=== PATIENT | female | born 1970 | race American Indian/Alaskan Native ===

== ENCOUNTER 2017-08-12 07:30 | Outpatient (CLI) | payer OTHER ==
--- NOTE | 2017-08-12 11:26 | Magnetic Resonance Report ---
MRI of the left knee. History: Left patellar pain. Procedure: Axial gradient echo T2-weighted images, coronal T1-weighted and proton-density images with fat saturation, sagittal T1 and T2-weighted images with fat saturation were used. Findings: The medial and lateral menisci appear normal. The collateral ligaments are normal. The anterior and posterior cruciate ligaments appear normal. The patellar cartilage appears normal in thickness. There is a very small joint effusion. In the distal femur at the diaphyseal metaphyseal junction, there is a slightly lobulated intramedullary mass which measures 1.6 x 1.4 cm. The margins are sharply defined. There is mixed signal on all sequences with evidence of an internal matrix. There is no cortical interruption or extraosseous soft tissue mass. Impression: 1. The intramedullary lesion in the distal femur has benign MR features. Differential considerations include enchondroma, fibrous dysplasia, brown tumor, and numerous additional benign lesions. A metastatic process is very unlikely. Correlation with plain radiographs may be useful. 2. Tiny joint effusion.
--- NOTE | 2017-08-13 10:22 | Magnetic Resonance Report ---
MRI RIGHT KNEE WITHOUT CONTRAST: 08/12/17 07:41:00 CLINICAL: Right knee pain. Chondromalacia right patella. TECHNIQUE: Sagittal proton density, sagittal T2 fat sat, coronal T1, coronal and axial proton density fat sat and sagittal gradient T2*sequences on a 1.5 Leticia magnet. FINDINGS: The patella is intact with normal cartilage, tendon and retinaculum. Physiologic fluid in the joint spaces and no joint effusion. The menisci are intact. The cruciate ligaments and collateral ligaments are intact. Normal marrow signal with no bone contusion or fracture. IMPRESSION: Normal study.
== END 2017-08-12 07:31 | disposition home or self-care (01) ==
LOC: MRI 07:30
DX: M85.08 Fibrous dysplasia (monostotic), other site (principal); M25.462 Effusion, left knee
CPT/HCPCS: 73721

== ENCOUNTER 2018-01-07 06:44 | Emergency (ER) | payer OTHER ==
[2018-01-07] MEDS ORDERED: FLEXERIL PO ONE (09:00)
[2018-01-07] MEDS ORDERED: TORADOL IM ONE (09:00)
--- NOTE | 2018-01-07 09:05 | Emergency Department Report ---
ED Upper Extremity Inj HPI - General Chief Complaint: Shoulder Injury Stated Complaint: RIGHT SHOULDER PAIN Time Seen by Provider: 01/07/18 08:39 Source: patient Mode of arrival: Ambulatory Limitations: No Limitations - History of Present Illness Initial Comments: This is a 47-year-old female nontoxic, well nourished in appearance, no acute signs of distress presents to the ED with c/o of right shoulder pain 2 days. Patient stated that she woke up 2 days ago with this pain but denies any trauma. Patient stated that she has normal range of motion but does have pain. Patient denies any joint redness, joint swelling, fever, chills, nausea, vomiting, headache, stiff neck, chest pain or shortness of breath. Patient denies any allergies or significant past medical history. MD Complaint: Injury to:: right, shoulder -: days(s) (2) Other Extremity Injury: Shoulder: Right Other Injuries: none Place: home Severity scale (0 -10): 8 Improves With: immobilization Worsens With: movement of extremity Associated Symptoms: denies: weakness, numbness, neck pain, suspects foreign body, nausea/vomiting, heard/felt popping sensat - Related Data Previous Rx's Medication Instructions Recorded Last Taken Type Cyclobenzaprine [Flexeril] 10 mg PO BID PRN #10 tablet 01/07/18 Unknown Rx Ibuprofen [Motrin] 600 mg PO Q8H PRN #30 tablet 01/07/18 Unknown Rx Allergies Allergy/AdvReac Type Severity Reaction Status Date / Time No Known Allergies Allergy Verified 01/07/18 07:15 ED Review of Systems ROS: Stated complaint: RIGHT SHOULDER PAIN Other details as noted in HPI Constitutional: denies: chills, fever Eyes: denies: eye pain, eye discharge, vision change ENT: denies: ear pain, throat pain Respiratory: denies: cough, shortness of breath, wheezing Cardiovascular: denies: chest pain, palpitations Endocrine: no symptoms reported Gastrointestinal: denies: abdominal pain, nausea, diarrhea Genitourinary: denies: urgency, dysuria, discharge Musculoskeletal: arthralgia. denies: back pain, joint swelling Skin: denies: rash, lesions Neurological: denies: headache, weakness, paresthesias Psychiatric: denies: anxiety, depression Hematological/Lymphatic: denies: easy bleeding, easy bruising ED Past Medical Hx - Past Medical History Hx Arthritis: Yes - Surgical History Hx Cholecystectomy: Yes Additional Surgical History: C/S, tubal ligation - Social History Smoking Status: Current Every Day Smoker Substance Use Type: Alcohol - Medications Home Medications: Home Medications Medication Instructions Recorded Confirmed Last Taken Type Cyclobenzaprine [Flexeril] 10 mg PO BID PRN #10 tablet 01/07/18 Unknown Rx Ibuprofen [Motrin] 600 mg PO Q8H PRN #30 tablet 01/07/18 Unknown Rx ED Physical Exam - General Limitations: No Limitations General appearance: alert, in no apparent distress - Head Head exam: Present: atraumatic, normocephalic - Eye Eye exam: Present: normal appearance - ENT ENT exam: Present: normal exam, mucous membranes moist - Neck Neck exam: Present: normal inspection, full ROM. Absent: tenderness, meningismus - Respiratory Respiratory exam: Present: normal lung sounds bilaterally. Absent: respiratory distress, wheezes, rales, rhonchi, stridor - Cardiovascular Cardiovascular Exam: Present: regular rate, normal rhythm, normal heart sounds. Absent: bradycardia, tachycardia, irregular rhythm, systolic murmur, diastolic murmur, rubs, gallop - GI/Abdominal GI/Abdominal exam: Present: soft, normal bowel sounds - Extremities Exam Extremities exam: Present: normal inspection, full ROM, tenderness, normal capillary refill. Absent: joint swelling - Expanded Upper Extremity Exam Right General: Present: normal inspection Shoulder Exam: Present: normal inspection, tenderness (deltoid region). Absent : full ROM, swelling, abrasion, laceration, ecchymosis, deformity, crepidus, dislocation, erythema, tenderness over AC joint Upper Arm exam: Present: normal inspection, full ROM. Absent: tenderness, swelling, abrasion, laceration, ecchymosis, deformity, crepidus, dislocation, erythema Elbow exam: Present: normal inspection, full ROM. Absent: tenderness, swelling , abrasion, laceration, ecchymosis, deformity, crepidus, dislocation, erythema, effusion, pain w/ pronation/supination Forearm Wrist exam: Present: normal inspection, full ROM Hand Wrist exam: Present: normal inspection, full ROM Neuro motor exam: Present: wrist extension intact, thumb opposition intact, thumb IP flexion intact, thumb adduction intact, fingers 2-5 abduction intact Neurosensory exam: Present: 2-point discrimination, radial nerve intact, ulnar nerve intact, median nerve intact Vascular: Present: vascular compromise, normal capillary refill, radial pulse, brachial pulse, ulnar pulse - Back Exam Back exam: Present: normal inspection, full ROM - Neurological Exam Neurological exam: Present: alert, oriented X3, normal gait - Psychiatric Psychiatric exam: Present: normal affect, normal mood - Skin Skin exam: Present: warm, dry, intact, normal color. Absent: rash ED Course Vital Signs 01/07/18 07:15 Temperature 99 F Pulse Rate 80 Respiratory 16 Rate Blood Pressure 130/98 O2 Sat by Pulse 99 Oximetry - Reevaluation(s) Reevaluation #1: 01/07/18 09:03 Patient is speaking in full sentences with no signs of distress noted. ED Medical Decision Making - Medical Decision Making This is a 47-year-old female that presents with right shoulder strain. Patient is stable and was examined by me. X-ray has been obtained and dictated by the radiologist. Patient is notified of the x-ray report with no rashes noted by the patient. Patient did receive Toradol and Flexeril in the ED which patient stated that that his symptoms are improving and subsided. Patient was instructed not to operate any machinery after discharge due to drowsiness of Flexeril which She stated that she will have somebody drive her home after discharge. Patient received a shoulder immobilizer. There is no joint swelling or redness. Slight decreased ROM due to pain. Patient was referred to Follow-up with a orthopedic doctor in 3-5 days or if symptoms worsen and continue return to emergency room as soon as possible. At time of discharge, the patient does not seem toxic or ill in appearance. No acute signs of distress noted. Patient agrees to discharge treatment plan of care. No further questions noted by the patient. Critical care attestation.: If time is entered above; I have spent that time in minutes in the direct care of this critically ill patient, excluding procedure time. ED Disposition Clinical Impression: Right shoulder strain Qualifiers: Encounter type: initial encounter Qualified Code(s): S46.911A - Strain of unspecified muscle, fascia and tendon at shoulder and upper arm level, right arm , initial encounter Disposition: - TO HOME OR SELFCARE Is pt being admited?: No Does the pt Need Aspirin: No Condition: Stable Instructions: Rotator Cuff Injury (ED), Muscle Spasm (ED), Cyclobenzaprine (By mouth), Ibuprofen (By mouth) Additional Instructions: Follow-up with a primary care doctor in 3-5 days or if symptoms worsen and continue return to emergency room as soon as possible. Take ibuprofen and Flexeril as prescribed. Do not operate heavy machinery while taking Flexeril due to sedation Prescriptions: Cyclobenzaprine [Flexeril] 10 mg PO BID PRN #10 tablet PRN Reason: Muscle Spasm Ibuprofen [Motrin] 600 mg PO Q8H PRN #30 tablet PRN Reason: Pain Referrals: JEROMY PELAYO MD [Primary Care Provider] - 3-5 Days PRIMARY CARE, [Referring] - 3-5 Days [facility] [Outside] - 3-5 Days Forms: Work/School Release Form(ED)
--- NOTE | 2018-01-07 10:10 | XRay Report ---
RIGHT SHOULDER, 3 VIEWS: HISTORY: right shoulder pain. Normal bone mineralization. No acute osseous injury or joint pathology is detected. The soft tissues are unremarkable. IMPRESSION: Right shoulder within normal limits.
[2018-01-07 10:26] VITALS: BP 127/83
== END 2018-01-07 10:26 | disposition home or self-care (01) ==
LOC: ED 06:44
DX: S46.911A Strain of unspecified muscle, fascia and tendon at shoulder and upper arm level, right arm, initial encounter (principal); M19.90 Unspecified osteoarthritis, unspecified site; F17.200 Nicotine dependence, unspecified, uncomplicated; Z98.51 Tubal ligation status; Z90.49 Acquired absence of other specified parts of digestive tract; X58.XXXA Exposure to other specified factors, initial encounter; Y93.89 Activity, other specified; Y99.8 Other external cause status; Y92.009 Unspecified place in unspecified non-institutional (private) residence as the place of occurrence of the external cause
CPT/HCPCS: 29105; 73030; 96372; 99283; J1885

== ENCOUNTER 2019-06-25 13:33 | Outpatient (CLI) | payer OTHER ==
--- NOTE | 2019-06-25 18:35 | Magnetic Resonance Report ---
MRI LUMBAR SPINE WITHOUT CONTRAST INDICATION / CLINICAL INFORMATION: LUMBAGO. TECHNIQUE: Multisequence, multiplanar images of the lumbar spine were obtained. COMPARISON: None available. FINDINGS: ALIGNMENT: The motion degrades the image quality despite repeat imaging. VERTEBRAE:Normal marrow signal and vertebral body height for age. VISUALIZED SPINAL CORD: No significant abnormality. [id number] ANALYSIS: L1-2: No significant abnormality. L2-3: No significant abnormality. L3-4: There is a right foraminal and far lateral disc bulge with mild encroachment on the exiting rig ht L3 nerve root sheath. There is also associated foraminal annular tear. There is no significant ron tral spinal stenosis. L4-5: There is a broad-based left-sided at disc protrusion which mildly effaces the left lateral rece ss at. Additionally, this finding extends into the left neural foramen with mild encroachment on the exiting left L4 nerve root sheath. L5-S1: There is a broad-based central disc bulge and annular tear which minimally flattens the ventra l thecal sac at. There is mild neural foraminal narrowing bilaterally. There are endplate changes ant eriorly at. PARASPINAL SOFT TISSUES: No significant abnormality. ADDITIONAL FINDINGS: No epidural collections are identified. IMPRESSION: 1. This broad-based left sided at disc protrusion at L4-5 which mildly effaces the left lateral reces s. Additionally, this finding extends into the left neural foramen with mild encroachment on the exit ing left L4 nerve root sheath at. 2. There is a right foraminal and far lateral disc bulge and annular tear at L3-4 which mildly encroa ches on the exiting right L3 nerve root sheath. 3 at. There is a central disc bulge and annular tear at L5-S1 which minimally flattens the ventral th ecal sac. There is mild neural foraminal narrowing bilaterally. Signer Name: Tripp Blount MD Signed: 06/25/2019 6:30 PM Workstation Name: [id number]
== END 2019-06-25 13:34 | disposition home or self-care (01) ==
LOC: MRI 13:33
DX: M54.5 Low back pain (principal)
CPT/HCPCS: 72148

== ENCOUNTER 2019-07-21 13:34 | Outpatient (CLI) | payer OTHER ==
--- NOTE | 2019-07-22 10:19 | Mammography Report ---
DIGITAL SCREENING MAMMOGRAM WITH CAD, 07/21/2019 INDICATION: Routine screening mammography. TECHNIQUE: Digital bilateral 2D mammography was obtained in the craniocaudal and mediolateral obliq ue projections. This examination was interpreted with the benefit of Computer-Aided Detection analysi s. COMPARISON: 07/13/2018 FINDINGS: Breast Density: The breasts are heterogeneously dense, which may obscure small masses. A right upper outer periareolar focal asymmetry requires additional imaging. No architectural distort ion or suspicious calcifications. There is no evidence of dominant mass, suspicious calcifications or architectural distortion in the left breast. IMPRESSION: Right asymmetry requiring additional imaging. Recommend recall for right spot compression views and right breast ultrasound if needed. Follow up recommendation: Special View: Spot Category 0: Incomplete. Needs additional imaging evaluation and/or prior mammograms for comparison. A "normal" or negative report should not discourage follow up or biopsy of a clinically significant f inding. A written summary of these findings will be mailed to the patient. The patient will be entered into a mammography reporting system which will generate a reminder letter for the patient's next appointmen t at the appropriate interval. The [employer] recommends yearly mammograms starting at age 40 and continuing as l ros[place] as a woman is in good health. Breast MRI is recommended for women with an approximate 20-25% or greater lifetime risk of breast cancer, including women with a strong family history of breast or ova wolfgang cancer or who have been treated for Hodgkin's disease. Signer Name: Antoine Rodgers MD Signed: 07/22/2019 10:15 AM Workstation Name: [id number]
== END 2019-07-21 13:35 | disposition home or self-care (01) ==
LOC: SPVWC 13:34
PROVIDERS: ATTEND Family Medicine
DX: Z12.31 Encounter for screening mammogram for malignant neoplasm of breast (principal); M19.90 Unspecified osteoarthritis, unspecified site; Z90.49 Acquired absence of other specified parts of digestive tract
CPT/HCPCS: 77067

== ENCOUNTER 2019-08-26 14:31 | Outpatient (CLI) | payer OTHER ==
--- NOTE | 2019-08-26 15:34 | Mammography Report ---
DIGITAL RIGHT DIAGNOSTIC MAMMOGRAM WITH CAD, 08/26/2019 INDICATION: ABNORMAL MAMMO TECHNIQUE: Digital right mammographic imaging was performed. Spot compression views were obtained. This examination was interpreted with the benefit of Computer-aided Detection analysis. COMPARISON: 07/21/2019 Breast Density: The breast is heterogeneously dense, which may obscure small masses. FINDINGS: Lateral and spot compression MLO and CC views were performed and are negative. Satisfactory effacement of asymmetries on spot images. IMPRESSION: No mammographic evidence of malignancy. Follow up recommendation: Routine BI-RADS Category 1: Negative. A "normal" or negative report should not discourage follow up or biopsy of a clinically significant f inding. A written summary of these findings will be mailed to the patient. The patient will be entered into a mammography reporting system which will generate a reminder letter for the patient's next appointmen t at the appropriate interval. According to the [employer], yearly mammograms are recommended starting at age 40 and continuing as long as a woman is in good health. Breast MRI is recommended for women with an bill roximately 20-25% or greater lifetime risk of breast cancer, including women with a strong family his tory of breast or ovarian cancer and women who have been treated for Hodgkin's disease. Signer Name: Antoine Rodgers MD Signed: 08/26/2019 3:29 PM Workstation Name: [id number]
== END 2019-08-26 14:32 | disposition home or self-care (01) ==
LOC: SPVWC 14:31
PROVIDERS: ATTEND Family Medicine
DX: R92.8 Other abnormal and inconclusive findings on diagnostic imaging of breast (principal)